=== PATIENT | male | born 1945 | race Caucasian/White ===

== ENCOUNTER 2016-09-30 10:33 | Day surgery (SDC) | payer MEDICARE, BC ==
[~2016-09-30] VITALS: Ht 180.3 cm; Wt 86.3 kg
[~2016-09-30 10:33] MED LIST: CELE200 PO; CENTTAB20; MICA80TA PO; POTA-243 PO; PRAV20 PO
[2016-09-30 11:39] VITALS: BP 139/83; PULSE 68; RESP 18; TEMP 98.3; O2SAT 94
[2016-09-30] MEDS ORDERED: CELE1CAP6 PO (11:39)
[2016-09-30] MEDS ORDERED: TELM1TAB4 PO (11:39)
[2016-09-30] MEDS ORDERED: APIX5TAB PO (11:39)
[2016-09-30] MEDS ORDERED: PRAV20TA2 PO (11:39)
[2016-09-30] MEDS ORDERED: METO25TA3 PO (11:39)
[2016-09-30] MEDS ORDERED: AMLO10TA2 PO (11:39)
[2016-09-30] MEDS ORDERED: ALPR.25 PO (11:39)
[2016-09-30] MEDS ORDERED: POTA10CA PO (11:39)
[2016-09-30] MEDS ORDERED: COLC1TAB7 PO (11:39)
[2016-09-30] MEDS ORDERED: NS 1000P @30 MLS/HR (KVO) IV SCH (11:45)
[2016-09-30 11:58] LABS: AUTOMATED NEUTROPHIL # 6.7 TH/MM3 (1.8-7.7); BASOPHIL % 0.4 % (0.0-2.0); EOSINOPHIL # 0.3 TH/MM3 (0-0.4); EOSINOPHIL % 2.7 % (0.0-4.0); HEMATOCRIT 44.3 % (39.0-51.0); LYMPH % 21.2 % (9.0-44.0); LYMPHOCYTE # 2.1 TH/MM3 (1.0-4.8); MEAN CELL VOLUME 83.1 FL (80.0-100.0); MEAN CORPUSCULAR HEMOGLOBIN 28.7 PG (27.0-34.0); MEAN CORPUSCULAR HGB CONC 34.5 % (32.0-36.0); MONO % 7.8 % (0.0-8.0); NEUT % 67.9 % (16.0-70.0); PLATELET COUNT 246 TH/MM3 (150-450); RED BLOOD COUNT 5.33 MIL/MM3 (4.50-5.90); RED CELL DISTRIBUTION WIDTH 14.1 % (11.6-17.2); WHITE BLOOD COUNT 9.8 TH/MM3 (4.0-11.0)
[2016-09-30 11:59] LABS: HEMO FLAGS DIFF FINAL
[2016-09-30 12:07] LABS: APTT (PATIENT) 28.2 SEC (24.3-30.1); PROTHROMBIN TIME - PATIENT 10.9 SEC (9.8-11.6)
[2016-09-30 12:11] LABS: BICARBONATE 28.2 MEQ/L (21.0-32.0); POTASSIUM 3.7 MEQ/L (3.5-5.1)
[2016-09-30] MEDS ORDERED: IOHEXOL 350 MG/ML 100 ML BTL (for Cath Lab) OTHER ONE (12:26)
[2016-09-30] MEDS ORDERED: IOHEXOL 350 MG/ML 50 ML BTL (for Cath Lab) OTHER ONE (12:26)
[2016-09-30] MEDS ORDERED: HEPARIN-NS/PF INJ 500 ML ONE (12:33)
[2016-09-30] MEDS ORDERED: MIDAZOLAM HCL 2 MG/2 ML VIAL ONE ×3 (12:33→13:38)
[2016-09-30] MEDS ORDERED: HEPARIN SODIUM - IV 10,000 UNITS/10 ML VIAL ONE (13:31)
--- NOTE | 2016-09-30 13:49 | EKG ---
Date Performed: 09/30/2016 Time Performed: 11:52:00 PTAGE: 71 years EKG: Sinus rhythm . rSr'(V1) - probable normal variant Inferior infarct - age undetermined Abnormal ECG NO PREVIOUS TRACING DOCTOR: Baldomero Chung Interpretating Date/Time 09/30/2016 13:49:10
--- NOTE | 2016-09-30 14:35 | CATHPROC ---
[employer] HIS Report Study Information Study Number Admission Scheduled Start Study Start [id number] Sep 30 2016 10:33AM 09/30/2016 Sep 30 2016 12:35PM [facility] Cardiac Catheterization Admit Source Facility Department Other [facility] - Cabin Cleaning Supervisor Physician and Clinical Staff Initial MD Marie, Ricky Freelance Data Entry Elizabeth Milton,RN Recorder Monique Luke,RT(R) (BS) Scrub Roddy AtkinsRT(R) Procedures Performed Procedure Location (Site) Vessel Name Angiogram LV LV Ventricle Coronary Angiograms LCA Left Coronary Coronary Angiograms RCA Right Coronary L Heart Cath PTCA ADD ON'S Wire insertion Fem Art (right) Femoral Art Equipment Time Senior Design Engineer Description Size Mfg Part Number Used/Scraped [id number] 13:34 [employer] WIRE, [employer] PROWATER 180CM 180CM Used *[id number] TRANSDUCER, TRUWAVE [id number] 12:41 [employer] PARISH * Used W/STOCKCOCK *[id number] [id number] 13:38 [employer] VL4 GUIDE CATHETER RUNWAY FR 6 Used *[id number] 91347-36 13:47 [employer] WIRE, CHOICE PT 182CM 182CM Used *[id number]- INTRODUCER SET, 12:45 [employer]. FR 5 SC-NT-U-SST Used MICROPUNCTURE, STIFFENED *[id number] 538-476 *[id number] 538-420 *[id number] 538-422 *[id number] 538-453S *[id number] [id number] 14:19 DAIG/ST. GRACIA MEDICAL ANGIOSEAL, FR6 VIP FR 6 Used *[id number] 12:41 [employer] IND[employer] PACK, CCL CUSTOM * Used *[id number] 12:41 [employer] PACER PEN, SKIN DUAL W/ RULER * Used *[id number] BALLOON, 1.25 X 6MM SPRINTER [id number] 13:57 [employer] 6MM Used LEGEND RX *[id number] 13:31 [employer] 30 HERRERA INDEFLATOR Used *[id number] [id number]-11- 13:31 [employer] SHEATH, FR6.5 PRELUDE 11CM FR 6.5 038ACT Used *[id number] 12:41 [employer] WIRE, 3MMJ .035 180CM 180CM Used *[id number] PROBE COVER, STERILE [id number] 12:41 [employer]ICAL * Used ULTRASOUND W/ GEL *[id number] 12:41 NAMIC MANIFOLD, 4 PORT * Used *[id number] 12:41 [employer]COMED OMNIPAQUE, 350 MG, 150ML 150ML [id number] Used [id number] 12:41 [employer] BLANKET,WARM AIR CCL * Used *[id number] 12:41 TERUMO [employer] SHEATH, FR4 TERUMO (10CM) FR 4 [id number] Used Equipment Model, Serial, Lot Number and Expiration Data Description Model Number Serial Number Lot Number Expiration Date ANGIOSEAL, FR6 VIP [id number] 04-15-2017 BALLOON, 1.25 X 6MM SPRINTER [id number] 07-15-2019 LEGEND RX INTRODUCER SET, [id number] 08-22-2019 MICROPUNCTURE, STIFFENED SHEATH, FR6.5 PRELUDE 11CM [id number] 04-15-2019 WIRE, CHOICE PT 182CM [id number] 02-10-2018 History: Current Medications Medication Dosage/Unit Route Frequency Last Date/Time Taken Statins (any) Beta Zaire ELIQUIS MICARDIS History: Allergies Allergy Reaction Bee Sting Prednisone History: Risk Factors Family History of Hypertension Dyslipidemia Previous UT Previous Heart Failure Premature CAD Yes Yes Yes No No Prior Valve Prior PCI Prior CABG Surgery No No No Cerebrovascular Peripheral Artery Chronic Lung On Dialysis Diabetes Disease Disease Disease No No No No No History: Stress Tests Stress or Imaging Studies Performed Yes Standard Exercise Stress Test No Stress Echo No Stress Test SPECT Stress Test SPECT Result Stress Test SPECT Ischemia Risk/Extent Yes Positive High Stress Test CMR No Cardiac CTA Coronary Calcium Score No No History: Other Current Smoker No Labs Hgb (g/dl) Hct (%) WBC (l/cumm) Platelets (thousands) 11.60-17.00 35.00-51.00 4.00-11.00 150.00-450.00 15.3 44.3 9.8 296 Glucose (mg/dl) BUN (mg/dl) Creatinine (mg/dl) BUN:Creatinine (1:x) 74.00-106.00 7.00-18.00 0.50-1.30 10.00-20.00 122 14 1.0 14 Na (meq/l) K (meq/l) 136.00-145.00 3.50-5.10 136 3.7 INR (PTT:PT) 0.90-1.10 1 CPK-MB (ng/ML) 0.50-3.60 Not Drawn Medication Medication Total Dose (Bolus/Oral) Medication Total Dosage/Unit 1% XYLOCAINE 20 mL FENTANYL 200 mcg HEPARIN 5000 units NTG (IC) 300 mcg VERSED 6 mg Medications (Bolus/Oral) Medication Time Given Dosage/Unit Administered By Reason VERSED 09/30/2016 1:11:38 PM 2 mg Adamy, Elizabeth 2 mg VERSED given in lab by Elizabeth Milton RN in Left Antecubital via Peripheral IV. FENTANYL 09/30/2016 1:12:46 PM 50 mcg Adamy, Elizabeth 50 mcg FENTANYL given in lab by Elizabeth Milton RN in Left Antecubital via Peripheral IV. 1% XYLOCAINE 09/30/2016 1:16:34 PM 20 mL Jamidar, Humayun 20 mL 1% XYLOCAINE given in lab by Paty Marieun in Right Groin via Subcutaneous. VERSED 09/30/2016 1:17:15 PM 2 mg Adamy, Elizabeth 2 mg VERSED given in lab by Elizabeth Milton RN in Left Antecubital via Peripheral IV. FENTANYL 09/30/2016 1:18:21 PM 50 mcg Yoan, Elizabeth 50 mcg FENTANYL given in lab by Elizabeth Milton RN in Left Antecubital via Peripheral IV. HEPARIN 09/30/2016 1:33:41 PM 5000 units Jonna Miltonfer 5000 units HEPARIN given in lab by Elizabeth Milton RN in Left Antecubital via Peripheral IV. VERSED 09/30/2016 1:40:04 PM 2 mg Adamy, Elizabeth 2 mg VERSED given in lab by Elizabeth Milton RN in Left Antecubital via Peripheral IV. FENTANYL 09/30/2016 1:41:10 PM 50 mcg Sinany, Elizabeth 50 mcg FENTANYL given in lab by Elizabeth Milton RN in Left Antecubital via Peripheral IV. NTG (IC) 09/30/2016 1:41:32 PM 200 mcg Jamidar, Humayun 200 mcg NTG (IC) given in lab by Eliot Marieayun in Right Groin via Intra-coronary. NTG (IC) 09/30/2016 1:54:58 PM 100 mcg Ricky Marie 100 mcg NTG (IC) given in lab by Ricky Marie in Right Groin via Intra-coronary. FENTANYL 09/30/2016 2:12:18 PM 50 mcg Elizabeth Milton 50 mcg FENTANYL given in lab by Elizabeth Milton RN in Left Antecubital via Peripheral IV. Medication (Drip) Medication Time Given Dosage/Unit Concentration/Unit Diluent (ml) Solution IV Solutions 09/30/2016 12:35:31 PM 0 mL (IV) 500 NaCl .9 IV Solutions given in lab by Elizabeth Milton RN in Left Antecubital via Peripheral IV. Pump/Drip Fredy w = 20 ml/hr using NaCl .9. Initial Case Assessment Cardiovascular HR Rhythm NIBP Chest Pain 75 reg 140/79 0 Edema Present Skin color Skin None Normal Warm Dry Circulatory - Right Pulses Dorsalis Pedis Femoral 3 3 Scale (0,1,2,3,4,d) Circulatory - Left Pulses Dorsalis Pedis Femoral 3 3 Scale (0,1,2,3,4,d) Circulatory - Lower Extremities Color Lower Right Color Lower Left Normal Normal Neurological State Oriented to time-place- Alert Moves all extremities person Respiration - General Respiration Rate SpO2 (%) (B/min) 11 100 Chronological Log Time Study Chronological Log 12:26:12 Patient Name, D.O.B, / Armband Verified By R.N. 12:26:17 Patient arrived via Bed. Vitals capture started with the following parameters, Patient=Adult, Interval=5 min, Initial Pr eeeqvm=205 mmHg, 12:35:03 Deflation Rate=5 mmHg 12:35:16 Consent signed by the physician and the patient and verified by the Cabin Cleaning Supervisor staff. 12:35:17 Pre-op and post- op instructions given; patient acknowledges understanding of instructions. 12:35:17 Verbal Stimulation=2 Physical Stimulation=2 Airway=2 Respiration=2 TOTAL=8. (0=absent, 1=li mited, 2=present) 12:35:19 Presedation assessment performed by Cabin Cleaning Supervisor RN. 12:35:22 Patient has been NPO for More than 6Hrs. 12:35:25 Skin Breakdown none per pt 12:35:27 Patient Warmer Placed on the Table. 12:35:29 Supa Prominences Protected 12:35:30 A # 20 IV was noted in the Antecubital (left). Grade = 0 IV Solutions given in lab by Elizabeth Milton RN in Left Antecubital via Peripheral IV. Pump/Dr ip Flow = 20 ml/hr using 12:35:31 NaCl .9. 12:35:31 History and physical on the chart or being dictated. Assessment: Initial Case, HR=75 BPM, Rhythm=reg, NXPA=229/79 mmhg, Chest Pain=0, Edema=None, Co karyn=Normal, Skin = Warm, Dry Right Pulses: González Ped=3, Femoral=3 Left Pulses: González Ped=3, Femoral=3 12:35:34 Lower Right Extremities: Color=Normal Lower Left Extremities: Color=Normal Neurological: State=Alert, Ox3, FARLEY Respiration: Resp=11 B/min, YbT2=126 % 12:36:13 HR=74 bpm, FSYC=796/79 mmhg, PsC7=390.0 %, Resp=12 B/min, Pain=0, Gray=10, Keller=2 12:36:17 Reference ECG taken 12:40:36 HR=73 bpm, DLLS=346/95 mmhg, SpO2=99.0 %, Resp=20 B/min, Pain=0, Gray=10, Keller=2 12:44:28 Bilateral groins prepped with 2% chlorhexidine, and with a 3 min. waiting time. 12:45:37 HR=73 bpm, TDKM=046/85 mmhg, LkB0=252.0 %, Resp=23 B/min, Pain=0, Gray=10, Keller=2 12:50:38 HR=81 bpm, UUBW=616/89 mmhg, AzX5=469.0 %, Resp=12 B/min, Pain=0, Gray=10, Keller=2 12:52:35 MD paged 12:52:38 Pressure channel 1 zeroed. 12:55:41 HR=75 bpm, ZORD=720/80 mmhg, MpW3=818.0 %, Resp=12 B/min, Pain=0, Gray=10, Keller=2 13:00:42 HR=74 bpm, FXLR=537/85 mmhg, RhJ3=478.0 %, Resp=8 B/min, Pain=0, Gray=10, Keller=2 13:05:41 HR=80 bpm, FQQQ=063/93 mmhg, JiZ9=303.0 %, Resp=11 B/min, Pain=0, Gray=10, Keller=2 13:10:42 HR=85 bpm, WEFZ=912/89 mmhg, SpO2=99.0 %, Resp=16 B/min, Pain=0, Gray=10, Keller=2 13:11:38 2 mg VERSED given in lab by Elizabeth Milton, MILLI in Left Antecubital via Peripheral IV. 13:12:46 50 mcg FENTANYL given in lab by Elizabeth Milton, MILLI in Left Antecubital via Peripheral IV. Time Out. Correct patient, correct procedure,correct physician, power injector not loaded with contrast with surgical 13:14:34 team present. Time Out Concurred by MD, individual staff in procedure 13:15:07 Case Start 13:15:43 HR=77 bpm, QDWU=329/82 mmhg, SpO2=97.0 %, Resp=6 B/min, Pain=0, Gray=10, Keller=2 13:16:34 20 mL 1% XYLOCAINE given in lab by Ricky Marie in Right Groin via Subcutaneous. 13:17:15 2 mg VERSED given in lab by Elizabeth Milton, MILLI in Left Antecubital via Peripheral IV. 13:17:42 Access site was Right Femoral Artery using ultrasound A INTRODUCER SET, MICROPUNCTURE, STIFFENED FR 5 was advanced into the Fem Art (right) using the 13:18:01 Percutaneous technique. 13:18:21 50 mcg FENTANYL given in lab by Elizabeth Milton, MILLI in Left Antecubital via Peripheral IV. A SHEATH, FR4 TERUMO (10CM) FR 4 was exchanged in the Fem Art (right). This was necessary in or mikaela to 13:18:24 accomodate a larger catheter. A JL 4.0 INFINITI CATHETER FR 4 was advanced over a wire. OMNIPAQUE, 350 MG, 150ML 150ML was us ed for 13:19:01 injections. Recorded Pressure: Ao, HR=76, Condition=Condition 1 13:19:58 (Aorta) Ao 135/70/99 13:20:13 The LCA was injected and visualized at various angles. OMNIPAQUE, 350 MG, 150ML 150ML used . 13:20:42 HR=78 bpm, MXDE=378/78 mmhg, SpO2=98.0 %, Resp=11 B/min, Pain=0, Gray=10, Keller=2 13:21:14 Catheter was removed A 3DRC INFINITI CATHETER FR 4 was advanced over a wire. OMNIPAQUE, 350 MG, 150ML 150ML was used for 13:21:22 injections. 13:22:46 The RCA was injected and visualized at various angles. OMNIPAQUE, 350 MG, 150ML 150ML used . A JL 5.0 INFINITI CATHETER FR 4 was advanced over a wire. OMNIPAQUE, 350 MG, 150ML 150ML was us ed for 13:23:25 injections. 13:25:10 The LCA was injected and visualized at various angles. OMNIPAQUE, 350 MG, 150ML 150ML used . 13:25:37 HR=85 bpm, UEWV=166/85 mmhg, SpO2=97.0 %, Resp=7 B/min, Pain=0, Gray=10, Keller=2 13:26:21 Catheter was removed 13:30:33 OMNIPAQUE, 350 MG, 150ML 150ML and 30 HERRERA INDEFLATOR added. 13:30:42 HR=73 bpm, PUEO=270/78 mmhg, SpO2=97.0 %, Resp=11 B/min, Pain=0, Gray=10, Keller=2 A SHEATH, FR6.5 PRELUDE 11CM FR 6.5 was exchanged in the Fem Art (right). This was necessary in order to 13:33:12 accomodate a larger catheter. A PIGTAIL ANG. INFINITI CATHETER FR 4 was advanced over a wire. OMNIPAQUE, 350 MG, 150ML 150ML was used 13:33:19 for injections. 13:33:41 5000 units HEPARIN given in lab by Elizabeth Milton RN in Left Antecubital via Peripheral I V. Recorded Pressure: LV, HR=71, Condition=Condition 1 13:33:57 (Left Ventricle) LV 127/11/15 13:35:29 The LV was injected at 8 cc/sec for a total of 32. OMNIPAQUE, 350 MG, 150ML 150ML used. 13:35:43 HR=67 bpm, EICR=344/68 mmhg, QmG8=138.0 %, Resp=16 B/min, Pain=0, Gray=10, Keller=2 Recorded Pressure: LV, Ao, HR=75, Condition=Condition 1 13:35:59 (Left Ventricle) LV 122/8/13, (Aorta) Ao 133/72/100 13:36:19 Catheter was removed A VL4 GUIDE CATHETER RUNWAY FR 6 was advanced over a wire. OMNIPAQUE, 350 MG, 150ML 150ML was u sed for 13:38:13 injections. 13:38:53 Activated Clotting Time Drawn 13:40:04 2 mg VERSED given in lab by Elizabeth Milton RN in Left Antecubital via Peripheral IV. 13:40:36 HR=71 bpm, FTWS=411/81 mmhg, SpO2=96.0 %, Resp=10 B/min, Pain=0, Gray=10, Keller=2 13:41:10 50 mcg FENTANYL given in lab by Elizabeth Milton RN in Left Antecubital via Peripheral IV. 13:41:32 200 mcg NTG (IC) given in lab by Ricky Marie in Right Groin via Intra-coronary. 13:43:00 A WIRE, ASAHI PROWATER 180CM 180CM was inserted via Fem Art (right). 13:45:43 HR=67 bpm, JTEK=276/70 mmhg, SpO2=96.0 %, Resp=8 B/min 13:46:30 Wire removed 13:46:58 ACT (Normal Range 90-180) = 307 13:47:09 A WIRE, CHOICE PT 182CM 182CM was inserted via Fem Art (right). 13:50:38 HR=79 bpm, AEPV=896/82 mmhg, SpO2=95.0 %, Resp=10 B/min, Pain=0, Gray=10, Keller=2 13:54:58 100 mcg NTG (IC) given in lab by Ricky Marie in Right Groin via Intra-coronary. 13:55:43 HR=73 bpm, QLZS=783/81 mmhg, SpO2=96.0 %, Resp=9 B/min, Pain=0, Gray=10, Keller=2 A BALLOON, 1.25 X 6MM SPRINTER LEGEND RX 6MM was inserted over WIRE, CHOICE PT 182CM 182CM via the Fem 13:56:40 Art (right). 14:00:40 HR=69 bpm, WUZB=502/78 mmhg, SpO2=96.0 %, Resp=10 B/min, Pain=0, Gray=10, Keller=2 14:05:43 HR=62 bpm, WCJW=240/60 mmhg, SpO2=93.0 %, Resp=7 B/min, Pain=0, Gray=10, Keller=2 14:06:49 Balloon Removed 14:06:58 Wire removed 14:08:39 A WIRE, ASAHI PROWATER 180CM 180CM was inserted via Fem Art (right). A BALLOON, 1.25 X 6MM SPRINTER LEGEND RX 6MM was inserted over WIRE, ASAHI PROWATER 180CM 180CM via the 14:11:01 Fem Art (right). 14:11:13 HR=74 bpm, MPBG=717/79 mmhg, SpO2=98.0 %, Resp=14 B/min, Pain=0, Gray=10, Keller=2 14:12:18 50 mcg FENTANYL given in lab by Elizabeth Milton RN in Left Antecubital via Peripheral IV. 14:15:46 HR=71 bpm, EAPP=579/84 mmhg, SpO2=95.0 %, Resp=9 B/min, Pain=0, Gray=10, Keller=2 14:16:25 Balloon Removed 14:16:34 Wire removed 14:16:38 Catheter was removed 14:18:47 An injection in the Fem Art (right) was made through the SHEATH, FR6.5 PRELUDE 11CM FR 6.5 . 14:20:35 ANGIOSEAL, FR6 VIP FR 6 placement in the Fem Art (right) 14:20:43 HR=91 bpm, KSEG=826/93 mmhg, SpO2=99.0 %, Resp=8 B/min, Pain=0, Gray=10, Keller=2 14:20:57 Case End 14:21:20 Catheter(s) removed without difficulty 14:21:27 No case complications noted. 14:21:32 Case complication noted. 14:21:34 Cine recording checked. 14:21:46 Bedside Report will be given. 14:21:48 Implantable Device card placed in patient's chart. 14:22:05 Contrast Scanned 14:22:07 A Left Heart Cath was performed. 14:25:46 HR=83 bpm, YKSK=500/81 mmhg, SpO2=98.0 %, Resp=11 B/min, Pain=0, Gray=10, Keller=2 14:29:34 Vitals capture stopped. 14:32:57 Patient moved to stretcher End Study - Contrast Media Used In Study Contrast Total Opened (mL) Total Used (mL) Total Wasted (mL) Omnipaque 220 220 0 End Study - Maximum Contrast Load Max Contrast Load (mL) 431.6 End Study - Radiation Exposure Fluoro Time (minutes) 21.5 End Study - Sheaths Sheaths Pulled By Sheath Hold Time (min) Ricky Marie End Study - Patient Disposition Complications Transferred To Interventional Outcome No Cabin Cleaning Supervisor Holding incomplete
--- NOTE | 2016-09-30 22:41 | MP ---
cc: RICKY MARIE MD, DEANNA K. M.D. DATE OF SURGERY 09/30/16 1. Cardiac catheterization for 2. Sedation. 3. Change to 6-Maldivian guide catheter. 4. Attempt at crossing with Prowater wire and choice PT BRIEF HISTORY Mr. Noe Moss is a patient of Dr. Gina Lara who presented with atrial fibrillation. He was noted to have an inferior myocardial infarction by EKG. Subsequently, he had a nuclear stress test that showed inferior infarct. Because of this he came to heart catheterization. Risks of heart catheterization is , bleeding, myocardial infarction, perforation, aspiration, foreseen and foreseen complications reviewed. The patient fully appeared to understsand the risks. PROCEDURAL STATEMENT The patient and draped and prepped in usual manner. Right femoral artery was entered using micropuncture technique via the 4-Maldivian sheath. Left and right coronary catheters used to intubated right and left coronaries. Pigtail catheter used to intubate left ventricle. Multiple angiographic views were carried out. At the end of the catheterization procedure, the patient was given 5000 units of heparin. ACT of greater than 300 was obtained. The patient then had exchanged to a 6-Maldivian system. A 6-Maldivian Voda left guide catheter was used to intubate the left main. A 0.014 Prowater wire was used to try and cross the occluded circumflex. It did not cross. A Choice PT was attempted. A supporting balloon was also used to try and cross. Despite all the above, the choice PT and the Prowater wire would not cross the lesion. There was evidence of probably organized thrombus. It was therefore decided given the patient's remote history of infarct and collateral flow best to stop at this point. At the end of procedure, the patient had a femoral angiogram and following this an Angio-Seal. FINDINGS HEMODYNAMICS The aortic pressure 133/72 with a mean of 100. The left ventricular pressure was 122 with a left ventricular diastolic pressure of 13. There was no evidence of significant gradient on pullback across the LV outflow and aortic valve. LEFT VENTRICULOGRAM The overall left ventricular ejection fraction was reduced evidence of inferior posterior infarct with inferior wall hypokinesis. The anterior wall moved normally and the apex moved normally. CORONARIES The left main is large and free of significant disease. The left anterior descending artery is a large vessel with a large first diagonal branch and it is also free of significant disease. The circumflex vessel is a large vessel with a large first obtuse marginal branch which has some mild 25% disease at its ostium. The mid circumflex is totally occluded with evidence of some bridging collaterals. Attempts were made to try and cross the mid circumflex total occlusion. The wires went partially across but not all the way despite the supporting balloon. It was decided not to push too hard in case this provoked a dissection/perforation. The circumflex also had a second obtuse marginal branch that was medium. There is a third obtuse marginal branch/posterior descending artery that was large. The right coronary artery was a small nondominant vessel. It gave a 40% stenosis proximally and a 40% stenosis mid section. CONCLUSION Significant one to two-vessel coronary artery disease with totally occluded circumflex with reduced flow at JEFRY grade one. After discussion with a colleague in the clinical laboratory director, it was decided that we should attempt angioplasty of the circumflex if the wire would cross. The wire did not cross suggesting organized thrombus given the age of the infarct. Therefore medical management will now be continued. The patient will be discharged later today to follow up in my office in one to two weeks time. Follow up with Dr. Lara. Note - The patient is on aspirin at home and beta mitch and on Eliquis for A. Fib. Ricky Marie MD, FRCP,[facility] TRAN/ /2:38 PM /10:31 PM
== END 2016-09-30 18:25 | disposition home or self-care (01) ==
LOC: HCAT 10:33 → HDIC 10:34 → HCAT 18:25
PROVIDERS: ATTEND Internal Medicine Cardiovascular Disease
DX: R94.39 Abnormal result of other cardiovascular function study (principal); I48.91 Unspecified atrial fibrillation; I25.2 Old myocardial infarction; I70.0 Atherosclerosis of aorta; I10 Essential (primary) hypertension; R94.31 Abnormal electrocardiogram [ECG] [EKG]; E78.5 Hyperlipidemia, unspecified; Z79.899 Other long term (current) drug therapy; Z79.01 Long term (current) use of anticoagulants
CPT/HCPCS: 80048; 85002; 85025; 85610; 85730; 93005; 93458; C1725; C1760; C1769; C1887; C1893; G0269; J1644; J2250; J3010; C1714; C1874; Q9967